=== PATIENT | female | born 1950 | race Caucasian/White ===

== ENCOUNTER 2017-06-26 13:00 | Inpatient (IN) | payer MEDICARE, OTHER ==
[2017-06-29] MEDS ORDERED: Lidocaine 1% (PF) 30 ML VIAL ONE (07:17)
[2017-06-29] MEDS ORDERED: Fentanyl 100 MCG/2 ML VIAL ONE (07:17)
[2017-06-29] MEDS ORDERED: Scopolamine 1.5 mg/72 hour Patch ONE (07:17)
[2017-06-29] MEDS ORDERED: Midazolam HCl 2 mg/2 ml Vial ONE ×2 (07:17)
[2017-06-29] MEDS ORDERED: CEFAZOLIN/Water 2 GM/20 ML SYRINGE ONE (07:17)
[2017-06-29] MEDS ORDERED: Promethazine HCl 25 MG/ML VIAL SLOW IVP PRN (08:24)
[2017-06-29] MEDS ORDERED: HYDROmorphone 2 MG/ML VIAL SLOW IVP PRN (08:24)
[2017-06-29] MEDS ORDERED: Zolpidem Tartrate 5 MG TAB PO PRN (08:24)
[2017-06-29] MEDS ORDERED: Ondansetron HCl/PF 4 MG/2 ML Vial IVP PRN ×3 (08:24→10:08)
[2017-06-29] MEDS ORDERED: diphenhydrAMINE 50 MG/ML VIAL IVP PRN (08:24)
[2017-06-29] MEDS ORDERED: Naloxone HCl 0.4 mg/ml Vial IV PRN (08:24)
[2017-06-29] MEDS ORDERED: Promethazine HCl 25 MG/ML VIAL IM PRN ×3 (08:24→10:08)
[2017-06-29] MEDS ORDERED: diphenhydrAMINE 25 MG CAP PO PRN (08:24)
[2017-06-29] MEDS ORDERED: diphenhydrAMINE 50 MG/ML VIAL IM PRN (08:24)
[2017-06-29] MEDS ORDERED: Communication Order-Pharmacy FS SCH (08:30)
[2017-06-29] MEDS ORDERED: Dextrose 5% in Water 1,000 ML IV PRN (10:08)
[2017-06-29] MEDS ORDERED: hydrALAZINE 20 MG/ML VIAL SLOW IVP PRN (10:08)
[2017-06-29] MEDS ORDERED: HYDROmorphone HCl/PF 0.1 MG/ML 100 ML ONE (10:53)
[2017-06-29] MEDS ORDERED: D5 1/2 NS w/20 mEq KCL 1,000 ML ONE (11:16)
--- NOTE | 2017-06-29 11:35 | OP ---
DATE OF PROCEDURE: 06/29/2017 PREOPERATIVE DIAGNOSIS: Gastric outlet obstruction. SURGEON: Luis Fernando Schreiber M.D. PROCEDURE PERFORMED: Exploratory laparotomy, partial gastrectomy with Carter-en-Y gastrojejunostomy an d esophagogastroduodenoscopy. INDICATIONS: The patient is a 66-year-old female who had had an opened vertical banded gastroplasty in the [facility] in 1983. She did well at first, but progressively has become more and more o bstructed. She is unable to take any pills, she is unable to consume anything other than thin liquid s. She vomits frequently and has lost a tremendous amount of weight. An EGD was performed that show ed near complete obstruction. I had to use a pediatric scope to get through the tiny little opening. FINDINGS: Very distended pouch, very thickened wall from chronic obstruction, moderate adhesions. PROCEDURE IN DETAIL: After informed consent was obtained, the patient was taken to the operating irma m and given general endotracheal anesthesia. She was placed in the supine position. The abdomen was prepped and draped in the usual fashion. An upper midline incision was performed. The subcu divide d sharply, a lysis of adhesions was performed to free the omentum from the anterior abdominal wall an d then to expose the stomach. The band could be felt, the proximal pouch was very distended, on OG t ube was inserted by Anesthesia under direct vision and palpation, we were able to decompress this of old liquefied dark, almost feculent material. Once it was decompressed, at first, I was trying to de cide whether just to do a bypass, but with such a large pouch, I elected not to actually resected the VBG portion so the lesser sac was entered and the omentum was taken off the greater curvature utiliz ing the LigaSure. Short gastrics divided with the LigaSure and the left crura defined with the LigaS ure. The lesser curve was also palpated and a little opening was made in the lesser curve inferior t o a palpable right gastric vessel to make sure that there was good blood flow to the pouch. Then I h ad to use a green load because of the wall of the stomach was so thick, a linear 60 mm green load use d to make a transverse incision. Then a series of greens was used to create the pouch to ensure hall ncy of the EG junction. During the next step, a 38 Georgian bougie was placed into the pouch so that I could be sure that I did not compromise the EG junction. The last firing was a gold load, then the s tomach was divided utilizing green loads distally and this obstructed portion of the stomach, includi ng the band and old staple line were sent to pathology for further analysis. Hemostasis assured. Ne xt, the omentum was lifted up, the ligament of Treitz was found, 50 cm of small bowel measured off. The small bowel was divided utilizing a linear 60 mm white load stapler. Then distally 80 cm of smal l bowel measured off and a [id number] functional end-to-end anastomosis was performed. The loops o f bowel were approximated and the enterotomy was made with electrocautery. Then the linear 60 mm whi te load stapler used to place one limb in each limb of bowel, closed, fired. The common enterotomy w as then closed with a linear 60 mm white load stapler. The potential hernia space of Aguilar was cl osed with interrupted 3-0 Vicryl suture. The omentum was split with the LigaSure, the Carter limb was then brought up to the pouch without tension and an enterotomy made approximately 6 cm from the end o f it and a gastrotomy was performed with electrocautery. The linear 60 mm gold load stapler used to perform this anastomosis. One limb placed in the stomach, 1 limb in the Carter limb and fired, the gas trojejunostomy opening was then closed transversely with a 2-0 V-lock Stratafix. Then intraoperative endoscopy was performed. The video endoscope inserted into the esophagus and down into the gastric pouch and easily into the Carter limb. There was no bleeding noted. The anastomosis was inflated with air under pressure under water to be sure there was no air leak. The stomach and small bowel decomp ressed and the scope removed. Hemostasis was assured. The abdomen thoroughly irrigated and irrigati on fluid removed. The fascia closed with a running looped #1 PDS. The subcutaneous was thoroughly i rrigated. Subcutaneous closed with interrupted 3-0 Vicryl and skin closed with a running subcuticula r 4-0 Rapide. Steri-Strips applied. Sterile bandage applied. Of note, I did use community assistant, Bradnon Torre from the OR, certified flex endoscope reprocessor.
[2017-06-29] MEDS: D5 1/2 NS w/20 mEq KCL 1,000 ML IV SCH ×2 (14:05→17:23)
[2017-06-29] MEDS: Acetaminophen 1,000 MG in Premix Bag 1 BAG IVPB SCH ×3 (14:05→23:17)
[2017-06-29] MEDS: Ketorolac Tromethamine 30 MG/ML VIAL IVP SCH ×3 (14:06→23:18)
[2017-06-29 14:21] VITALS: BMI 20.2
[2017-06-29] MEDS ORDERED: Glycopyrrolate 0.2 MG/ML 5 ML SYRINGE ONE ×2 (16:51)
[2017-06-29] MEDS ORDERED: Propofol 200 MG/20 ML VIAL ONE (16:51)
[2017-06-29] MEDS ORDERED: Ondansetron HCl/PF 4 MG/2 ML Vial ONE (16:51)
[2017-06-29] MEDS ORDERED: PHENYLEPHRINE-NS 100 MCG/ML 10 ML SYRINGE ONE (16:51)
[2017-06-29] MEDS ORDERED: Dexamethasone 20 MG/5 ML VIAL ONE (16:51)
[2017-06-29] MEDS ORDERED: Lidocaine 1% PF 5 ML VIAL ONE (16:51)
[2017-06-29] MEDS ORDERED: Ketorolac Tromethamine 30 MG/ML VIAL ONE (16:51)
[2017-06-29] MEDS ORDERED: ePHEDrine/0.9% NaCl/PF SYRINGE 50 mg/10 ml ONE (16:51)
[2017-06-29] MEDS ORDERED: Insulin Regular 300 UNITS/3 ML VIAL SC PRN (17:35)
[2017-06-29] MEDS ORDERED: Lactated Ringer's 1,000 ML IV SCH (17:45)
[2017-06-29] MEDS: Famotidine/PF 20 mg/2ml Vial SLOW IVP SCH (20:35)
[2017-06-30] MEDS: D5 1/2 NS w/20 mEq KCL 1,000 ML IV SCH ×3 (04:22→21:52)
[2017-06-30 04:49] LABS: #Lymphocytes 0.8 thou/uL (1.20-3.40); #Monocytes 0.8 thou/uL (0.11-0.59); #Neutrophils 7.6 thou/uL (1.40-6.50); %Basophils 0.2 % (0.0-1.0); %Eosinophils 0.2 % (0.0-10.0); %Lymphocytes 8.4 % (21.0-51.0); %Monocytes 8.9 % (0.0-10.0); Mean Platelet Volume 11.3 fL (7.4-10.4); White Blood Cell (WBC) Count 9.2 thou/uL (4.8-10.8)
[2017-06-30 05:32] LABS: ALT (SGPT) 12 U/L (8-55); AST (SGOT) 28 U/L (5-34); Alkaline Phosphatase 32 U/L (40-150); Anion Gap 10 mmol/L (10-20); BUN (Urea Nitrogen) 10 mg/dL (9.8-20.1); Bilirubin, Total 0.3 mg/dL (0.2-1.2); Calc. Creatinine Clearance 73 mL/min (70-130); Calcium 8.6 mg/dL (7.8-10.44); Carbon Dioxide 24 mmol/L (23-31); Chloride 107 mmol/L (98-107); Estimated GFR-MDRD 73; Globulin 2.3 g/dL (2.4-3.5); Protein, Total 5.3 g/dL (6.0-8.3)
[2017-06-30] MEDS: Ketorolac Tromethamine 30 MG/ML VIAL IVP SCH ×4 (06:40→23:54)
[2017-06-30] MEDS: Acetaminophen 1,000 MG in Premix Bag 1 BAG IVPB SCH ×4 (06:40→23:54)
[2017-06-30] MEDS: Enoxaparin Sodium 40 MG/0.4 ML SYRINGE SC SCH (09:40)
[2017-06-30] MEDS: Famotidine/PF 20 mg/2ml Vial SLOW IVP SCH ×2 (09:40→21:03)
--- NOTE | 2017-06-30 12:29 | RAD ---
GASTROGRAFIN UPPER GI: HISTORY: The patient is status post gastrectomy. FINDINGS: 15 mL of Gastrografin were given to the patient. Only a very small amount of contrast passed through the GE junction. We waited over 230 minutes. No additional contrast would pass. IMPRESSION: Persistent hangup of contrast within the esophagus. Findings were telephoned to Dr. Schreiber. POS: GRACIE
[2017-06-30] MEDS ORDERED: GASTROGRAFIN 30 ML BOT ONE (13:34)
[2017-07-01] MEDS: HYDROmorphone 10 mg/100 ml CADD IVPB PRN (05:16)
[2017-07-01] MEDS: Acetaminophen 1,000 MG in Premix Bag 1 BAG IVPB SCH ×2 (05:18→12:02)
[2017-07-01] MEDS: Ketorolac Tromethamine 30 MG/ML VIAL IVP SCH ×2 (05:19→12:03)
[2017-07-01] MEDS: D5 1/2 NS w/20 mEq KCL 1,000 ML IV SCH ×2 (06:34→20:53)
[2017-07-01] MEDS: Enoxaparin Sodium 40 MG/0.4 ML SYRINGE SC SCH (08:34)
[2017-07-01] MEDS: Famotidine/PF 20 mg/2ml Vial SLOW IVP SCH ×2 (08:34→20:53)
[2017-07-01] MEDS ORDERED: D5 1/2 NS w/20 mEq KCL 1,000 ML IV SCH (09:25)
--- NOTE | 2017-07-01 09:48 | PRG ---
DATE OF SERVICE: 07/01/2017 Postop day #2. Ms. Emery has no complaints. No nausea or vomiting. She is thirsty. Pain is well controlled. She has been ambulatory in the room. She is afebrile. Vital signs are stable. Her abdo men is soft, nontender. Dressings are removed, revealed a healed upper midline incision. LABORATORY: White cell count is 9, hemoglobin 10, platelet count is 126, creatinine 0.79. ASSESSMENT: Postop day #2, revision VBG to gastric bypass. PLAN: Her swallow test showed no contrast going through the anastomosis; however, she had normal upp er endoscopy at time of surgery, no leak on the barium study. We will start on a liquid diet and see how she does. Encouraged ambulation. We will decrease IV fluids. 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
[2017-07-01] MEDS: Dextrose 50% Abboject 50 ML SYRINGE SLOW IVP PRN ×2 (13:29→18:33)
[2017-07-01] MEDS ORDERED: Dextrose 50% Abboject 50 ML SYRINGE SLOW IVP PRN (18:45)
[2017-07-01] MEDS ORDERED: PPN Hyperalimentation 1,000 ML IV SCH (19:00)
[2017-07-02 05:35] LABS: #Eosinphils 0.2 thou/uL (0.0-0.7); #Lymphocytes 0.8 thou/uL (1.20-3.40); #Monocytes 0.4 thou/uL (0.11-0.59); #Neutrophils 2.6 thou/uL (1.40-6.50); %Basophils 0.6 % (0.0-1.0); %Eosinophils 5.7 % (0.0-10.0); %Lymphocytes 18.9 % (21.0-51.0); %Monocytes 10.2 % (0.0-10.0); Hematocrit 30.4 % (36.0-47.0); Mean Platelet Volume 10.6 fL (7.4-10.4); White Blood Cell (WBC) Count 4.1 thou/uL (4.8-10.8)
[2017-07-02 06:07] LABS: ALT (SGPT) 9 U/L (8-55); AST (SGOT) 18 U/L (5-34); Alkaline Phosphatase 43 U/L (40-150); Anion Gap 7 mmol/L (10-20); BUN (Urea Nitrogen) 6 mg/dL (9.8-20.1); Bilirubin, Total 0.4 mg/dL (0.2-1.2); Calc. Creatinine Clearance 84 mL/min (70-130); Calcium 8.2 mg/dL (7.8-10.44); Carbon Dioxide 24 mmol/L (23-31); Chloride 111 mmol/L (98-107); Estimated GFR-MDRD 87; Globulin 2.4 g/dL (2.4-3.5); Phosphorus 2.8 mg/dL (2.3-4.7); Protein, Total 5.1 g/dL (6.0-8.3)
[2017-07-02] MEDS: Famotidine/PF 20 mg/2ml Vial SLOW IVP SCH ×2 (08:19→20:16)
[2017-07-02] MEDS: Enoxaparin Sodium 40 MG/0.4 ML SYRINGE SC SCH (08:20)
--- NOTE | 2017-07-02 09:22 | PRG ---
DATE OF SERVICE: 07/02/2017 SUBJECTIVE: Postop day #3, Ms. Emery is still complaining of pain when she is up and around. She f eels some obstruction with liquids when she swallow and so she has not taken much just yet. No real significant nausea. Blood sugars were low yesterday. She is getting D50 every 6 hours as needed. S he started to drink more Ensure, sugars are improved. PHYSICAL EXAMINATION: VITAL SIGNS: Blood pressure is 135/72, pulse 62, respirations 14. She is afebrile. GENITOURINARY: Urine output, multiple voids. ABDOMEN: Soft. Her wound is clear. No evidence of infection. LABORATORY DATA: White blood cell count is 4, hemoglobin 9, platelets are 141, creatinine 0.68. Her prealbumin is 8, magnesium and phosphatase are normal. Calcium normal. ASSESSMENT: Postop day #03, revision VBG to Carter-en-Y gastrojejunostomy. PLAN: Continue slow progress on oral intake, suspected to be ready for discharge in the next 24-48 h ours. I encouraged ambulation. Because she has not taken much yet, I will continue [employer] for pain con trol.
[2017-07-02] MEDS: HYDROmorphone 10 mg/100 ml CADD IVPB PRN (11:13)
[2017-07-02] MEDS: D5 1/2 NS w/20 mEq KCL 1,000 ML IV SCH (11:15)
[2017-07-02] MEDS: Dextrose 50% Abboject 50 ML SYRINGE SLOW IVP PRN ×2 (12:21→18:27)
[2017-07-03] MEDS: D5 1/2 NS w/20 mEq KCL 1,000 ML IV SCH ×2 (02:14→16:41)
[2017-07-03] MEDS: Famotidine/PF 20 mg/2ml Vial SLOW IVP SCH ×2 (08:56→20:32)
[2017-07-03] MEDS: Enoxaparin Sodium 40 MG/0.4 ML SYRINGE SC SCH (08:57)
[2017-07-04] MEDS: D5 1/2 NS w/20 mEq KCL 1,000 ML IV SCH (05:57)
[2017-07-04 08:24] VITALS: BP 165/79; TEMP 97.6
[2017-07-04] MEDS: Enoxaparin Sodium 40 MG/0.4 ML SYRINGE SC SCH (08:59)
[2017-07-04] MEDS: Famotidine/PF 20 mg/2ml Vial SLOW IVP SCH (08:59)
[2017-07-04] MEDS ORDERED: Hydrocodone-Acetamin 15 ML UDCUP PO PRN (09:23)
--- NOTE | 2017-07-04 09:51 | DIS ---
DISCHARGE DIAGNOSES: Gastric outlet obstruction and malnutrition. PROCEDURES DURING ADMISSION: Open excision of foreign body, partial gastrectomy, Carter-en-Y gastrojej unostomy. HOSPITAL COURSE: The patient was admitted, taken to the operating room where she underwent a laparot margie with partial gastrectomy to excise the foreign body and old staple line as well as the fundus. S he had a Carter-en-Y gastrojejunostomy. Also during that procedure, she had an EGD. Postoperatively, she had a Gastrografin swallow, initially there was quite a bit of edema, the dye did not flow. She was kept n.p.o. for a couple of days. Eventually, she was able to begin liquids. She tolerated them well. She did have some episodes of hypoglycemia while on clear liquids, but that resolved when swi tched to full liquids. She is discharged home now in good condition, tolerating full liquids well. Blood sugars are fine. Bowels are working. She is discharged on hydrocodone and Zofran. She will f ollow up in 1 week.
== END 2017-07-04 12:01 | disposition home or self-care (01) | DRG 327 ==
LOC: SURG A 06-29 05:57
PROVIDERS: ADMIT Surgery; ATTEND Surgery
PROC: 0D160ZA Bypass Stomach to Jejunum, Open Approach (ICD-10-PCS; principal; 2017-06-29)
PROC: 0DB60ZZ Excision of Stomach, Open Approach (ICD-10-PCS; 2017-06-29)
PROC: 0DJ08ZZ Inspection of Upper Intestinal Tract, Via Natural or Artificial Opening Endoscopic (ICD-10-PCS; 2017-06-29)
DX: K31.1 Adult hypertrophic pyloric stenosis (principal); E46 Unspecified protein-calorie malnutrition; E11.649 Type 2 diabetes mellitus with hypoglycemia without coma; Z98.84 Bariatric surgery status; Z79.84 Long term (current) use of oral hypoglycemic drugs; Z68.20 Body mass index [BMI] 20.0-20.9, adult
CPT/HCPCS: 36415; 36416; 74241; 80053; 82533; 83735; 84100; 84134; 85025; 88307; 88312; J0131; J0360; J1100; J1200; J1650; J1885; J2001; J2250; J2405; J2550; J2704; J3010; S0028

== ENCOUNTER 2017-06-26 13:51 | Outpatient (CLI) | payer MEDICARE, OTHER ==
[2017-06-26 15:22] LABS: #Eosinphils 0.2 thou/uL (0.0-0.7); #Lymphocytes 1.4 thou/uL (1.20-3.40); #Monocytes 0.6 thou/uL (0.11-0.59); #Neutrophils 4.3 thou/uL (1.40-6.50); %Basophils 0.3 % (0.0-1.0); %Eosinophils 3.1 % (0.0-10.0); %Lymphocytes 21.3 % (21.0-51.0); %Monocytes 8.7 % (0.0-10.0); Hematocrit 38.9 % (36.0-47.0); Mean Platelet Volume 10.2 fL (7.4-10.4); Red Blood Cell (RBC) Count 4.36 mill/uL (4.20-5.40); White Blood Cell (WBC) Count 6.5 thou/uL (4.8-10.8)
[2017-06-26 15:47] LABS: ALT (SGPT) 7 U/L (8-55); AST (SGOT) 15 U/L (5-34); Alkaline Phosphatase 40 U/L (40-150); Anion Gap 12 mmol/L (10-20); BUN (Urea Nitrogen) 9 mg/dL (9.8-20.1); Bilirubin, Total 0.3 mg/dL (0.2-1.2); Calc. Creatinine Clearance 0 mL/min (70-130); Calcium 9.8 mg/dL (7.8-10.44); Carbon Dioxide 28 mmol/L (23-31); Chloride 106 mmol/L (98-107); Estimated GFR-MDRD 60; Protein, Total 6.9 g/dL (6.0-8.3)
== END 2017-06-26 13:52 | disposition home or self-care (01) ==
LOC: LABBT 13:51
PROVIDERS: ATTEND Surgery
DX: Z01.818 Encounter for other preprocedural examination (principal); K31.1 Adult hypertrophic pyloric stenosis
CPT/HCPCS: 80053; 85025; 93005; 93010

== ENCOUNTER 2022-10-17 15:19 | Emergency (ER) | payer MEDICARE, OTHER ==
[2022-10-17] MEDS ORDERED: Lidocaine 1% w/Epinephrine 1:100K 20 ML VIAL ONE (18:36)
[2022-10-17] MEDS ORDERED: Boostrix 0.5 ML (Tdap) VIAL (>/=7 yrs of age) ONE (18:43)
[2022-10-17] MEDS ORDERED: Lisinopril 10 MG TAB ONE ×2 (19:46→19:48)
[2022-10-17] MEDS ORDERED: hydrALAZINE 25 MG TAB ONE (20:26)
[2022-10-17] MEDS ORDERED: Bacitracin 1 PK ONE (20:29)
== END 2022-10-17 20:27 | disposition home or self-care (01) ==
LOC: ERS 15:19
DX: S51.811A Laceration without foreign body of right forearm, initial encounter (principal); I10 Essential (primary) hypertension; E11.9 Type 2 diabetes mellitus without complications; W01.198A Fall on same level from slipping, tripping and stumbling with subsequent striking against other object, initial encounter; Z23 Encounter for immunization
CPT/HCPCS: 12013; 70450; 72125; 90471; 90715